=== PATIENT | male | born 1965 | race Two or more races ===

== ENCOUNTER → 2016-10-20 | Outpatient (CLI) | payer OTHER | LOC: BMCIMAGING 10:10 | PROVIDERS: ATTEND Emergency Medicine | DX: S89.92XA Unspecified injury of left lower leg, initial encounter (principal); M17.12 Unilateral primary osteoarthritis, left knee; M25.462 Effusion, left knee ==

== ENCOUNTER → 2017-12-03 | Outpatient (CLI) | payer OTHER | LOC: BMCIMAGING 11:17 | PROVIDERS: ATTEND Internal Medicine | DX: S22.32XA Fracture of one rib, left side, initial encounter for closed fracture (principal); W18.2XXA Fall in (into) shower or empty bathtub, initial encounter | CPT/HCPCS: 71101-PO ==